=== PATIENT | female | born 1995 | race Caucasian/White ===

== ENCOUNTER 2021-07-21 22:42 | Emergency (ER) | payer MEDICAID, OTHER ==
[~2021-07-21] VITALS: Ht 157.5 cm; Wt 86.2 kg
[2021-07-21 23:42] LABS: BILIRUBIN,URINE NEGATIVE (NEGATIVE); CLARITY,URINE CLEAR; COLOR,URINE YELLOW; GLUCOSE, URINE (UA) NEGATIVE (NEGATIVE); KETONES,URINE TRACE (NEGATIVE); LEUKOCYTE ESTERASE ,URINE NEGATIVE (NEGATIVE); NITRITE,URINE NEGATIVE (NEGATIVE); PROTEIN,URINE NEGATIVE (NEGATIVE)
[2021-07-21 23:48] LABS: BACTERIA,URINE NEGATIVE /HPF; RBC,URINE RARE /HPF
[2021-07-21 23:50] LABS: AMPHETAMINE SCREEN, URINE NEGATIVE (NEGATIVE); BARBITURATE SCREEN URINE NEGATIVE (NEGATIVE); BENZODIAZEPINES SCREEN URINE NEGATIVE (NEGATIVE); CANNABINOID SCREEN, URINE NEGATIVE (NEGATIVE); COCAINE SCREEN URINE NEGATIVE (NEGATIVE); METHADONE STAT NEGATIVE (NEGATIVE); METHAMPHETAMINE SCREEN URINE S NEGATIVE (NEGATIVE); OPIATE SCREEN URINE NEGATIVE (NEGATIVE); OXYCODONE STAT NEGATIVE (NEGATIVE); PROPOXYPHENE STAT NEGATIVE (NEGATIVE); TRICYCLIC ANTIDEPRESSANTS SCRE NEGATIVE (NEGATIVE)
--- NOTE | 2021-07-22 00:20 | ED GU-Female ---
General Chief Complaint: OB < 20 WEEKS Stated Complaint: 10 WKS PREG - CRAMPING Nursing Triage Note: PT AMB TO FT 2 W REPORTS THAT SHE BELIEVES SHE'S ABOUT 10 WEEKS , HAS NOT BEEN ESTABLISHED W OB YET. C/O ABD PAIN AT THIS TIME. A&OX4. Source: patient History of Present Illness Date Seen by Provider: Jul 21, 2021 Time Seen by Provider: 23:20 Initial Comments PT ARRIVES VIA POV WITH A MALE. PT STATES SHE IS --NOT SURE HOW FAR ALONG SHE IS--THINKS POSSIBLY 10 WEEKS, STATES LMP WAS 05/09/21 HAS NOT HAD ANY OB CARE YET, FOR THIS PT IS AB 0 STATES SHE HAS HAD ABDOMINAL PAIN SINCE LAST NIGHT OR THIS MORNING--PAIN STARTS IN UPPER EPIGASTRIC/XYPHOID AREA AND GOES STRAIGHT DOWN TO GENITAL AREA IN A STRAIGHT LINE PAIN GOT WORSE AN HOUR AGO, WHILE STANDING AND TALKING TO HER MOTHER STATES PAIN IS WORSE WITH STANDING, NOTHING IMPROVES PAIN HAS NOT TAKEN ANYTHING FOR PAIN STATES SHE HAS NAUSEA AND VOMITING OFF AND ON--"NOT EVERY DAY, AND NOT VERY BAD" AND IS NOT NAUSEATED NOW NO DIARRHEA NO URINARY SYMPTOMS--NO PAIN, BURNING, URGENCY, FREQUENCY OR HEMATURIA NO VAGINAL BLEEDING OR DISCHARGE NO FEVER NO PRIOR GI PROBLEMS OR ANY ABDOMINAL SURGERIES PCP: NONE--STATES "I JUST MOVED BACK HERE FROM [place] IN 2019". STATES SHE LIVED THERE FOR 4 YEARS, WHERE HER 3 CHILDREN WERE BORN. STATES SHE HAS NOT SEEN A DR HERE IN [place]--"DON'T LIKE GOING TO DOCTORS" Allergies and Home Medications Allergies Coded Allergies: No Known Drug Allergies (Unverified , 07/21/21) Patient Home Medication List Home Medication List Reviewed: Yes Review of Systems Review of Systems Constitutional: no symptoms reported EENTM: no symptoms reported Respiratory: no symptoms reported Cardiovascular: no symptoms reported Gastrointestinal: see HPI Genitourinary: no symptoms reported : Yes LMP: May 09, 2021 Musculoskeletal: no symptoms reported; No back pain Skin: no symptoms reported Psychiatric/Neurological: No Symptoms Reported Endocrine: No Symptoms Reported Hematologic/Lymphatic: No Symptoms Reported Past Hqtpjpf-Lsrdak-Yjjaox Hx Patient Social History Tobacco Use?: No Use of E-Cig and/or Vaping dev: No Substance use?: No Alcohol Use?: No Immunizations Up To Date Influenza Vaccine Up-to-Date: No; Not Current First/Initial COVID19 Vaccinat: NONE Second COVID19 Vaccination Papi: NONE COVID19 Vaccine Building Superintendent: NONE Past Medical History Surgeries: No Respiratory: No Cardiac: No Neurological: No : Yes Last Menstrual Period: May 09, 2021 Hx : 4 Hx Para: 3 Hx Total # of Abortions (Sp): 0 Reproductive Disorders: No Genitourinary: No Gastrointestinal: No Musculoskeletal: No Endocrine: No HEENT: No Cancer: No Psychosocial: No Integumentary: No Blood Disorders: No Physical Exam Vital Signs Vital Signs - First Documented 07/21/21 22:50 Temp 36.4 Pulse 104 Resp 20 B/P (MAP) 138/82 (100) Pulse Ox 99 O2 Delivery Room Air Capillary Refill : Less Than 3 Seconds Height, Weight, BMI Height: '" Weight: lbs. oz. kg; 34.00 BMI Method: General Appearance: WD/WN, no apparent distress, obese, other (GIGGLING AND LAUGHING AND TALKING AND PLAYING ON PHONE. SITTING -STYLE, WALKS UPRIGHT AND MOVES VERY QUICKLY WITHOUT ANY DIFFICULTY WHATSOEVER. BEHAVIOR IS VERY IMMATURE. 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, no motor/sensory deficits, alert, normal mood/affect, oriented x 3 Skin: normal color, warm/dry; No rash; tattoos/piercings Progress/Results/Core Measures Suspected Sepsis SIRS Temperature: Pulse: 104 Respiratory Rate: 20 Blood Pressure 138 /82 Mean: 100 Results/Orders Lab Results Laboratory Tests Test 07/21/21 23:30 Range/Units Urine Color YELLOW Urine Clarity CLEAR Urine pH 6.0 5-9 Urine Specific [place] >=1.030 1.016-1.022 Urine Protein NEGATIVE NEGATIVE Urine Glucose (UA) NEGATIVE NEGATIVE Urine Ketones TRACE H NEGATIVE Urine Nitrite NEGATIVE NEGATIVE Urine Bilirubin NEGATIVE NEGATIVE Urine Urobilinogen 0.2 < = 1.0 MG/DL Urine Leukocyte Esterase NEGATIVE NEGATIVE Urine RBC (Auto) TRACE-I H NEGATIVE Urine RBC RARE /HPF Urine WBC NONE /HPF Urine Squamous Epithelial Cells 10-25 H /HPF Urine Crystals NONE /LPF Urine Bacteria NEGATIVE /HPF Urine Casts NONE /LPF Urine Mucus LARGE H /LPF Urine Culture Indicated NO Urine Opiates Screen NEGATIVE NEGATIVE Urine Oxycodone Screen NEGATIVE NEGATIVE Urine Methadone Screen NEGATIVE NEGATIVE Urine Propoxyphene Screen NEGATIVE NEGATIVE Urine Barbiturates Screen NEGATIVE NEGATIVE Ur Tricyclic Antidepressants Screen NEGATIVE NEGATIVE Urine Phencyclidine Screen NEGATIVE NEGATIVE Urine Amphetamines Screen NEGATIVE NEGATIVE Urine Methamphetamines Screen NEGATIVE NEGATIVE Urine Benzodiazepines Screen NEGATIVE NEGATIVE Urine Cocaine Screen NEGATIVE NEGATIVE Urine Cannabinoids Screen NEGATIVE NEGATIVE My Orders Orders - ANIBAL LAURENT DO Urine Bedside (07/21/21 23:29) Drug Screen Stat (Urine) (07/21/21 23:29) Ua Culture If Indicated (07/21/21 23:29) Vital Signs/I&O 07/21/21 07/22/21 22:50 00:26 Temp 36.4 Pulse 104 95 Resp 20 20 B/P (MAP) 138/82 (100) 112/73 Pulse Ox 99 99 O2 Delivery Room Air Room Air Capillary Refill : Less Than 3 Seconds Blood Pressure Mean: 100 Progress Note : Progress Note NO COMPLAINTS OF ANY KIND DURING ER STAY PT REFUSES TO GET OFF PHONE I AM ATTEMPTING TO EXAMINE HER AND GIVE TEST RESULTS. WANTS MALE TO LEAVE ROOM WHEN I AM GIVING HER TEST RESULTS AND WHEN I AM EXAMINING HER. PT STATES SHE CAN ONLY TAKE OVER THE COUNTER VITAMINS--THE OTHERS MAKE HER SICK UNABLE TO HEAR FHT'S AT THIS TIME Departure Impression Primary Impression: test positive Disposition: 01 HOME, SELF-CARE Condition: Stable Departure-Patient Inst. Decision time for Depature: 00:18 Referrals: LUDA FONTANEZ DENNIS G MD SHAW, ANGELA C DO [facility] [place] Patient Instructions: Symptoms Add. Discharge Instructions: TYLENOL NEEDED FOR PAIN OVER THE COUNTER VITAMINS EVERY DAY LOTS OF CLEAR LIQUIDS FOLLOW UP WITH OB DR OF CHOICE SOON POSSIBLE--CALL IN THE MORNING TO SCHEDULE APPOINTMENT All discharge instructions reviewed with patient and/or family. Voiced understanding. ANIBAL LAURENT DO Jul 22, 2021 00:20
[2021-07-22 00:26] VITALS: BP 112/73
== END 2021-07-22 00:26 | disposition home or self-care (01) ==
LOC: EDUNIT# 22:42 → ER 22:45
DX: Z32.01 Encounter for pregnancy test, result positive (principal); E66.9 Obesity, unspecified; Z68.34 Body mass index [BMI] 34.0-34.9, adult
CPT/HCPCS: 80306; 81000; 84703; 99282

== ENCOUNTER 2021-10-04 18:23 | Outpatient (CLI) | payer MEDICAID ==
[~2021-10-04] VITALS: Ht 157.4 cm; Wt 81.6 kg
[2021-10-04 18:44] VITALS: BP 117/77
[2021-10-04 18:45] VITALS: BP 117/77
[2021-10-04] MEDS ORDERED: PNV11TAB5 PO (18:49)
[2021-10-04 19:09] LABS: BILIRUBIN,URINE NEGATIVE (NEGATIVE); CLARITY,URINE CLEAR; COLOR,URINE YELLOW; GLUCOSE, URINE (UA) NEGATIVE (NEGATIVE); KETONES,URINE NEGATIVE (NEGATIVE); LEUKOCYTE ESTERASE ,URINE NEGATIVE (NEGATIVE); NITRITE,URINE NEGATIVE (NEGATIVE); PROTEIN,URINE NEGATIVE (NEGATIVE)
[2021-10-04 19:17] LABS: BACTERIA,URINE TRACE /HPF; SQUAMOUS EPITHELIAL CELL,UR 0-2 /HPF; WBC,URINE 0-2 /HPF
--- NOTE | 2021-10-05 08:45 | Physician Query-Final Dx ---
Clinic Account Progress/Dx Physician Query: Please give diagnosis Please include # weeks gestation Date of Service Oct 04, 2021 at 18:23 ANDREW,SepOct 05, 2021 08:45
== END 2021-10-04 19:32 ==
LOC: WSo 18:23 → LDRP 18:23 → WSo 19:32
PROVIDERS: ATTEND Family Medicine
DX: O12.02 Gestational edema, second trimester (principal); Z3A.22 22 weeks gestation of pregnancy
CPT/HCPCS: 81000; 99212

== ENCOUNTER 2022-01-19 18:37 | Outpatient (CLI) | payer MEDICAID ==
[~2022-01-19] VITALS: Ht 160 cm; Wt 195.8 kg
[~2022-01-19 18:37] MED LIST: PNV11TAB5 PO
[2022-01-19 19:30] VITALS: BP 132/78
[2022-01-19 21:00] LABS: BILIRUBIN,URINE NEGATIVE (NEGATIVE); CLARITY,URINE CLEAR; COLOR,URINE YELLOW; GLUCOSE, URINE (UA) NEGATIVE (NEGATIVE); KETONES,URINE NEGATIVE (NEGATIVE); LEUKOCYTE ESTERASE ,URINE TRACE (NEGATIVE); NITRITE,URINE NEGATIVE (NEGATIVE); PH,URINE 6.5 (5-9); PROTEIN,URINE NEGATIVE (NEGATIVE)
[2022-01-19 21:24] LABS: BACTERIA,URINE TRACE /HPF; RBC,URINE 0-2 /HPF; SQUAMOUS EPITHELIAL CELL,UR 0-2 /HPF; WBC,URINE 0-2 /HPF
[2022-01-19] MEDS ORDERED: ACETAMINOPHEN 500 MG TAB (TYLENOL) ONE (21:48)
[2022-01-19] MEDS ORDERED: NS IV 1000 ML 1,000 ML ONE (21:48)
[2022-01-19] MEDS ORDERED: ACETAMINOPHEN 500 MG TAB (TYLENOL) PO ONE (22:00)
[2022-01-19] MEDS ORDERED: NS IV 1000 ML 1,000 ML IV SCH (22:15)
[2022-01-19 23:30] VITALS: BP 109/60
--- NOTE | 2022-01-20 08:10 | Physician Query-Final Dx ---
Clinic Account Progress/Dx Physician Query: Please give diagnosis Please include # weeks gestation Date of Service January 19, 2022 at 18:37 ,SepJanuary 20, 2022 08:10
== END 2022-01-19 23:27 ==
LOC: WSo 18:37 → LDRP 18:42 → WSo 23:27
PROVIDERS: ATTEND Family Medicine
DX: O26.899 Other specified pregnancy related conditions, unspecified trimester (principal); R10.9 Unspecified abdominal pain; Z3A.00 Weeks of gestation of pregnancy not specified
CPT/HCPCS: 81000; 96360; 99214

== ENCOUNTER 2022-01-23 01:16 | Outpatient (CLI) | payer MEDICAID ==
[~2022-01-23] VITALS: Ht 157.5 cm; Wt 89.9 kg
[2022-01-23 01:37] VITALS: BP 124/67
[2022-01-23 01:39] VITALS: BP 124/67
[2022-01-23 01:52] LABS: BILIRUBIN,URINE NEGATIVE (NEGATIVE); CLARITY,URINE CLEAR; COLOR,URINE YELLOW; GLUCOSE, URINE (UA) NEGATIVE (NEGATIVE); KETONES,URINE 1+ (NEGATIVE); LEUKOCYTE ESTERASE ,URINE TRACE (NEGATIVE); NITRITE,URINE NEGATIVE (NEGATIVE); PH,URINE 6.5 (5-9); PROTEIN,URINE NEGATIVE (NEGATIVE)
[2022-01-23 02:05] LABS: BACTERIA,URINE NEGATIVE /HPF; RBC,URINE 0-2 /HPF
--- NOTE | 2022-01-25 08:19 | Physician Query-Final Dx ---
Clinic Account Progress/Dx Physician Query: Please give diagnosis Please include # weeks gestation Date of Service January 23, 2022 at 01:16 ,SepJanuary 25, 2022 08:19
== END 2022-01-23 02:55 | disposition home or self-care (01) ==
LOC: WSo 01:16 → LDRP 01:17 → WSo 02:55
PROVIDERS: ATTEND Family Medicine
DX: Z34.90 Encounter for supervision of normal pregnancy, unspecified, unspecified trimester (principal); Z3A.00 Weeks of gestation of pregnancy not specified
CPT/HCPCS: 81000

== ENCOUNTER 2022-01-29 06:10 | Inpatient (IN) | payer MEDICAID ==
[2022-01-29] VITALS (39 sets, daily range): BP systolic 94–126; BP diastolic 53–83
[~2022-01-29] VITALS: Ht 157.5 cm; Wt 90.5 kg
[2022-01-29] MEDS ORDERED: D5 LR IV SOLUTION 1,000 ML IV ONE (06:48)
--- NOTE | 2022-01-29 06:56 | History & Physical-OB ---
OB - Chief Complaint & HPI Date/Time Date of Admission: Date of Admission: January 29, 2022 at 06:10 Date seen by a Provider: January 29, 2022 Time Seen by a Provider: 06:40 Chief Complaint/History OB-Reason for Admission/Chief: Induction of Labor Hx : 4 Hx Para: 3 Expected Date of Delivery: Feb 05, 2022 Gestational Age in Weeks: 39 Gestational Age in Days: 0 Admission Nurse Assessment Rev: Yes History of Labs GBS negative Allergies and Home Medications Allergies Coded Allergies: chlorpheniramine (Verified Allergy, Unknown, Hives, 01/29/22) dextromethorphan (Verified Allergy, Unknown, Hives, 01/29/22) pseudoephedrine (Verified Allergy, Unknown, Hives, 01/29/22) Patient Home Medication List Home Medication List Reviewed: Yes Cfc783/FA/Omega3/Dha/Fish Oil ( Gummies) 1 Each Tab.chew, 2 EACH PO DAILY, (Reported) Entered as Reported by: CHIQUI GUPTA on 10/04/21 6079 OB - History Hx of Present Care: Yes Ultrasounds: Normal mid trimester US Obstetrical Complications: None Medical Complications: None Patient Past Medical History no chronic medical problems Social History/Family History 2nd Hand Smoke Exposure: No Immunizations First/Initial COVID19 Vaccine: NONE Second COVID19 Vaccination: NONE OB - Admission Exam Physical Exam HEENT: Moist Membranes Heart: Rhythm Normal Lungs: Clear Abdomen: Gravid Cervical Dilatation: 2cm Effacement: 75% Station: -3 Membranes: Ruptured Amniotic Fluid: Clear Heart Rate: 140's Accelerations: Accelerations Present Short Term Variability: Present Air Drier Variability: Average (6-25) Contractions on Admission: >10 Minutes Apart Intensity: Mild Bolton Scoring Tool (Modified) Dilation (cm): 1-2cm (1) Effacement (%): 51-79% (2) Descent/Station: -3 (0) Cervix Consistency: Medium(1) Cervix Position: Middle/Mid-Position (1) Add 1 point for: Each previous vaginal delivery (1) Bolton Score: 8 OB - Assessment/Plan/Diagnosis Assessment Assessment: induction of labor Admission Dx 1. IUP at 39 weeks. Admission Status: Inpatient Order (span 2 midnights) Reason for Inpatient Admission: L&D Plan Plan: Induction Induction Method: AROM Other Plan -desires epidural -pitocin as necessary SARAH BENJAMIN MD January 29, 2022 06:56
[2022-01-29] MEDS ORDERED: OXYTOCIN PRE-MIX DRIP 500 ML IV SCH ×2 (07:00→13:45)
[2022-01-29] MEDS ORDERED: MINERAL OIL 30 ML TOP PRN (07:00)
[2022-01-29] MEDS ORDERED: D5 LR IV SOLUTION 1,000 ML IV SCH (07:00)
[2022-01-29 07:11] LABS: BASOPHILS % (AUTO) 1 % (0-10); EOSINOPHILS # (AUTO) 0.2 10^3/uL (0.0-0.3); EOSINOPHILS % (AUTO) 3 % (0-10); HEMATOCRIT 31 % (35-52); HEMOGLOBIN 10.1 g/dL (11.5-16.0); LYMPHOCYTES # (AUTO) 1.9 10^3/uL (1.0-4.0); LYMPHOCYTES % (AUTO) 30 % (12-44); MEAN CORPUSCULAR HEMOGLOBIN 27 pg (25-34); MEAN CORPUSCULAR HGB CONC 32 g/dL (32-36); MEAN CORPUSCULAR VOLUME 82 fL (80-99); MEAN PLATELET VOLUME 12.9 fL (9.0-12.2); MONOCYTES # (AUTO) 0.4 10^3/uL (0.0-1.0); MONOCYTES % (AUTO) 6 % (0-12); NEUTROPHILS # (AUTO) 3.9 10^3/uL (1.8-7.8); NEUTROPHILS % (AUTO) 60 % (42-75); PLATELET COUNT 146 10^3/uL (130-400); WHITE BLOOD COUNT 6.5 10^3/uL (4.3-11.0)
[2022-01-29] MEDS ORDERED: fentaNYL 2 mcg/ml BUPIVA 0.125 100 ML ONE (07:54)
[2022-01-29] MEDS ORDERED: LACTATED RINGERS 1,000 ML IV SCH (08:00)
[2022-01-29] MEDS ORDERED: BUPIVACAINE 0.25% 10 ML (SENSORCAINE) VIAL ONE (09:26)
[2022-01-29] MEDS ORDERED: fentaNYL INJ 100 MCG/2 ML AMP ONE (09:27)
[2022-01-29] MEDS ORDERED: fentaNYL 2 mcg/ml BUPIVA 0.125 100 ML IV SCH (10:00)
[2022-01-29] MEDS ORDERED: NALOXONE 0.4 MG/ML 1 ML (NARCAN) VIAL IV PRN ×2 (10:00→13:45)
[2022-01-29] MEDS ORDERED: CATHETER FLUSH 10 ML SYR IV PRN (10:00)
[2022-01-29] MEDS ORDERED: ONDANSETRON 4 MG/2 ML (SDV) Z0FRAN IVP ONE (13:00)
[2022-01-29] MEDS ORDERED: ONDANSETRON 4 MG/2 ML (SDV) Z0FRAN ONE (13:01)
[2022-01-29] MEDS ORDERED: BENZOCAINE/MENTHOL (DERMOPLAST) 56 ML CAN TP PRN (13:45)
[2022-01-29] MEDS ORDERED: TETANUS,DIPTH,PERTUSS P/F (BOOSTRIX) 0.5 ML VIAL IM ONE (13:45)
[2022-01-29] MEDS ORDERED: WITCH HAZEL(TUCKS) 40 EA JAR TOP PRN (13:45)
[2022-01-29] MEDS ORDERED: MEASLES,MUMPS,RUBELLA 1 EA INJ SQ ONE (13:45)
--- NOTE | 2022-01-29 13:45 | OB Labor & Delivery Record ---
L&D History Date of Service Date of Service: January 29, 2022 History Expected Date of Delivery: Feb 05, 2022 Gestational Age in Weeks: 39 Hx : 4 Hx Para: 4 Complications Events: Routine care Operative Indications (Cesarea: N/A-Vaginal Delivery Intrapartal Events: None L&D Stage1 Stage One Onset of Labor - Date: January 29, 2022 Onset of Labor - Time: 06:30 Monitors and Tracing Monitor Mode: Internal Heart Rate: 130 Monitor Accelerations: Uniform Monitor Decelerations: None Station: -2 Business Development Intern Variability: Average (6-10) Short Term Variability: Present Presentation: Vertex Vital Signs VS - Last 72 Hours, by Label 01/29/22 01/29/22 01/29/22 01/29/22 06:59 08:00 08:15 08:30 Temp 36.8 36.6 Pulse 70 71 82 76 Resp 18 18 18 18 B/P (MAP) 116/71 (86) 115/71 (86) 114/77 (89) 111/64 (80) Pulse Ox 99 98 O2 Delivery Room Air Room Air Room Air 01/29/22 01/29/22 08:45 09:00 Temp 36.5 Pulse 80 80 Resp 18 18 B/P (MAP) 110/65 (80) 118/76 (90) O2 Delivery Room Air Room Air Rupture of Membranes Spontaneous Ruture of Membrane: No Amniotic Membrane Rupture Time: 0630 Amniotic Membrane Fluid Desc.: Clear Vaginal Bleeding Description: None L&D Stage2 Stage Two Stage II Date: January 29, 2022 Stage II Time: 13:24 Monitors and Tracing Monitor Mode: Internal Heart Rate: 130 Monitor Accelerations: Uniform Monitor Decelerations: None Group Home Variability: Average (6-10) Short Term Variability: Present Position: Left Occiput Anterior Presentation: Vertex Signs of Distress by FHT Signs of Distress No Cord Descript/Complications Cord Vessel Description: 3 Vessels Delivery Type Infant Delivery Method: Spontaneous Vaginal Anterior Shoulder: Left Episiotomy/Perineal Laceration Laceraction(s)/Extensions: No Condition of Delivery 1 minute Comment: 8 5 minute Comment: 9 Condition of Condition of : Living Exam: No Observed Abnormalities Resuscitation Resuscitation: N/A - Spontaneous Resp L&D Stage3 Stage Three Stage III Date: January 29, 2022 Stage III Time: 13:28 Pictocin Pitocin Administration mu/min: 4 Pitocin ml/hr: 4 Pitocin Administration Comment: 0338 PITOCIN INCREASED Placenta Delivery Placenta Delivery: Spontaneous Delivery Summary Summary Estimated blood loss (mL): 150 Condition of Delivery Examined: Cervix Examined Post Hemorrhage: No Intervention Required None SARAH BENJAMIN MD January 29, 2022 13:45
[2022-01-29] MEDS ORDERED: CATHETER FLUSH 10 ML SYR IV SCH (14:00)
[2022-01-29] MEDS ORDERED: RT-ALBUINH INH (16:31)
[2022-01-29] MEDS: ACETAMINOPHEN 500 MG TAB (TYLENOL) PO SCH ×2 (17:45→23:04)
[2022-01-29] MEDS: IBUPROFEN 600 MG (MOTRIN) TAB PO SCH ×2 (17:45→23:03)
[2022-01-29] MEDS: CATHETER FLUSH 10 ML SYR IV SCH (22:00)
[2022-01-29] MEDS: DOCUSATE SODIUM 100 MG (COLACE) CAP PO SCH (23:04)
[2022-01-30 03:23] VITALS: BP 113/66
[2022-01-30 06:04] LABS: BASOPHILS % (AUTO) 0 % (0-10); EOSINOPHILS # (AUTO) 0.2 10^3/uL (0.0-0.3); EOSINOPHILS % (AUTO) 2 % (0-10); HEMATOCRIT 30 % (35-52); HEMOGLOBIN 9.3 g/dL (11.5-16.0); LYMPHOCYTES % (AUTO) 29 % (12-44); MEAN CORPUSCULAR HEMOGLOBIN 26 pg (25-34); MEAN CORPUSCULAR HGB CONC 31 g/dL (32-36); MEAN CORPUSCULAR VOLUME 82 fL (80-99); MEAN PLATELET VOLUME 12.4 fL (9.0-12.2); MONOCYTES # (AUTO) 0.5 10^3/uL (0.0-1.0); MONOCYTES % (AUTO) 7 % (0-12); NEUTROPHILS # (AUTO) 4.3 10^3/uL (1.8-7.8); NEUTROPHILS % (AUTO) 61 % (42-75); PLATELET COUNT 122 10^3/uL (130-400); WHITE BLOOD COUNT 7.1 10^3/uL (4.3-11.0)
[2022-01-30] MEDS: IBUPROFEN 600 MG (MOTRIN) TAB PO SCH ×2 (06:24→12:32)
[2022-01-30] MEDS: CATHETER FLUSH 10 ML SYR IV SCH (06:25)
[2022-01-30] MEDS: ACETAMINOPHEN 500 MG TAB (TYLENOL) PO SCH ×2 (06:25→12:32)
[2022-01-30 08:41] VITALS: BP 110/66
[2022-01-30] MEDS ORDERED: FERROUS SULF 325 MG (IRON) TAB PO SCH (10:00)
[2022-01-30] MEDS ORDERED: FERR325T18 PO (10:02)
--- NOTE | 2022-01-30 10:04 | Short Stay Summary ---
Discharge Summary Hospital Course Final Diagnosis: s/p at 39wk GA Hospital Course Date of Admission: January 29, 2022 at 06:10 Admission Diagnosis : 1. at 39wk, IOL Family Physician/Provider: Sarah Benjamin MD Date of Discharge: 01/30/22 Discharge Diagnosis: 1. at 39wk, IOL s/p on 01/29/22 2. anemia of , iron deficiency Hospital Course: Routine course. Labs and Pending Lab Test: Laboratory Tests 01/30/22 05:28: White Blood Count 7.1, Red Blood Count 3.62L, Hemoglobin 9.3L, Hematocrit 30L, Mean Corpuscular Volume 82, Mean Corpuscular Hemoglobin 26, Mean Corpuscular Hemoglobin Concent 31L, Red Cell Distribution Width 14.1, Platelet Count 122L, Mean Platelet Volume 12.4H, Immature Granulocyte % (Auto) 1, Neutrophils (%) (Auto) 61, Lymphocytes (%) (Auto) 29, Monocytes (%) (Auto) 7, Eosinophils (%) (Auto) 2, Basophils (%) (Auto) 0, Neutrophils # (Auto) 4.3, Lymphocytes # (Auto) 2.0, Monocytes # (Auto) 0.5, Eosinophils # (Auto) 0.2, Basophils # (Auto) 0.0, Immature Granulocyte # (Auto) 0.0 Home Meds Active Reported Ventolin Hfa (Albuterol Sulfate) 1 Puff Puff 2 Puff INH Q6H 1 PUFF = 90 MCG Gummies (Ohu607/FA/Omega3/Dha/Fish Oil) 1 Each Tab.chew 2 Each PO DAILY Assessment/Pt Instructions Follow-up with Dr. Benjamin in 6 weeks. Discharge Instructions Discharge Diet: No Restrictions Activity as Tolerated: Yes Discharge Physical Examination General Appearance: Alert, Oriented X3, Cooperative Psych/Mental Status: Mood NL Allergies: Coded Allergies: chlorpheniramine (Verified Allergy, Unknown, Hives, 01/29/22) dextromethorphan (Verified Allergy, Unknown, Hives, 01/29/22) pseudoephedrine (Verified Allergy, Unknown, Hives, 01/29/22) Copy Copies To 1: SARAH BENJAMIN MD Discharge Summary Date of Admission January 29, 2022 at 06:10 Date of Discharge MARGARITA BURR DO January 30, 2022 10:04
[2022-01-30] MEDS: DOCUSATE SODIUM 100 MG (COLACE) CAP PO SCH (10:30)
[2022-01-30 12:32] VITALS: BP 117/80
--- NOTE | 2022-01-30 15:05 | Anesthesia-Regional Post-Op ---
Regional Patient Condition Mental Status: Alert, Oriented x3 Circulation: Same as Pre-Op Headache: Absent Sensation: Full Recovery Motor Block: Absent Post Op Complications Complications None Follow Up Care/Instructions Patient Instructions None needed. Anesthesia/Patient Condition Patient is doing well, no complaints, stable vital signs, no apparent adverse anesthesia problems. No complications reported per nursing. CHIARA KOO CRNA January 30, 2022 15:05
[2022-01-30 15:43] VITALS: BP 117/80
== END 2022-01-30 16:10 | disposition home or self-care (01) | DRG 807 ==
LOC: LDRP 06:10
PROVIDERS: ADMIT Family Medicine; ATTEND Family Medicine
PROC: 10E0XZZ Delivery of Products of Conception, External Approach (ICD-10-PCS; principal; 2022-01-29)
PROC: 10907ZC Drainage of Amniotic Fluid, Therapeutic from Products of Conception, Via Natural or Artificial Opening (ICD-10-PCS; 2022-01-29)
DX: O99.02 Anemia complicating childbirth (principal); Z37.0 Single live birth; Z3A.39 39 weeks gestation of pregnancy; D50.9 Iron deficiency anemia, unspecified
CPT/HCPCS: 36415; 85025; 86850; 86900; 86901

== ENCOUNTER 2022-02-05 21:58 | Emergency (ER) | payer MEDICAID ==
[~2022-02-05 21:58] MED LIST changes: +FERR325T18 PO; +RT-ALBUINH INH
[2022-02-05 23:04] LABS: BILIRUBIN,URINE NEGATIVE (NEGATIVE); CLARITY,URINE CLEAR; COLOR,URINE YELLOW; GLUCOSE, URINE (UA) NEGATIVE (NEGATIVE); KETONES,URINE TRACE (NEGATIVE); LEUKOCYTE ESTERASE ,URINE TRACE (NEGATIVE); NITRITE,URINE NEGATIVE (NEGATIVE); PROTEIN,URINE NEGATIVE (NEGATIVE)
[2022-02-05 23:37] LABS: BACTERIA,URINE TRACE /HPF; SQUAMOUS EPITHELIAL CELL,UR 0-2 /HPF; WBC,URINE 0-2 /HPF
[2022-02-06] MEDS ORDERED: RX-CYCLOBENZAPRINE 10 MG (FLEXERIL) TAB PPK#3 PO STA (00:30)
[2022-02-06] MEDS ORDERED: RX-NAPROXEN (NAPROSYN) 250 MG TAB PPK#4 PO STA (00:30)
[2022-02-06] MEDS ORDERED: CYCL10TA25 PO (00:30)
[2022-02-06] MEDS ORDERED: NAPR500T8 PO (00:30)
--- NOTE | 2022-02-06 00:31 | ED Back Pain ---
General Chief Complaint: Back Problems Stated Complaint: FALL/BACK PAIN Nursing Triage Note: TO ED VIA POV AND AMBULATORY TO FT3 WITH C/O BACK PAIN AFTER FALLING DOWN STAIRS. TOOK IBUPROFEN WITHOUT RELIEF. Source of Information: Patient History of Present Illness Date Seen by Provider: Feb 05, 2022 Allergies and Home Medications Allergies Coded Allergies: chlorpheniramine (Verified Allergy, Unknown, Hives, 01/29/22) dextromethorphan (Verified Allergy, Unknown, Hives, 01/29/22) pseudoephedrine (Verified Allergy, Unknown, Hives, 01/29/22) Patient Home Medication List Albuterol Sulfate (Ventolin Hfa) 1 Puff Puff, 2 PUFF INH Q6H, (Reported) Entered as Reported by: LIYAH HINTON on 01/29/22 1631 Ferrous Sulfate (Ferrous Sulfate) 325 Mg (65 Mg Iron) Tablet, 325 MG PO DAILY Prescribed by: MARGARITA BURR on 01/30/22 1002 Nwu539/FA/Omega3/Dha/Fish Oil ( Gummies) 1 Each Tab.chew, 2 EACH PO DAILY, (Reported) Entered as Reported by: CHIQUI GUPTA on 10/04/21 1849 Past Njlqqer-Uzubzb-Jwxgqm Hx Immunizations Up To Date First/Initial COVID19 Vaccinat: NONE Second COVID19 Vaccination Papi: NONE Third COVID19 Vaccination Date: NONE Past Medical History Surgeries: No Respiratory: No Cardiac: No Neurological: No Reproductive Disorders: No Genitourinary: No Gastrointestinal: No Musculoskeletal: No Endocrine: No HEENT: No Cancer: No Psychosocial: No Integumentary: No Blood Disorders: No Physical Exam Vital Signs Vital Signs - First Documented 02/05/22 22:25 Temp 36.6 Pulse 60 Resp 16 B/P (MAP) 130/84 (99) Pulse Ox 97 O2 Delivery Room Air Capillary Refill : Less Than 3 Seconds Height, Weight, BMI Height: '" Weight: lbs. oz. kg; 36.48 BMI Method: Progress/Results/Core Measures Results/Orders Lab Results Laboratory Tests Test 02/05/22 22:55 Range/Units Urine Color YELLOW Urine Clarity CLEAR Urine pH 6.0 5-9 Urine Specific [place] 1.020 1.016-1.022 Urine Protein NEGATIVE NEGATIVE Urine Glucose (UA) NEGATIVE NEGATIVE Urine Ketones TRACE H NEGATIVE Urine Nitrite NEGATIVE NEGATIVE Urine Bilirubin NEGATIVE NEGATIVE Urine Urobilinogen 0.2 < = 1.0 MG/DL Urine Leukocyte Esterase TRACE H NEGATIVE Urine RBC (Auto) NEGATIVE NEGATIVE Urine RBC NONE /HPF Urine WBC 0-2 /HPF Urine Squamous Epithelial Cells 0-2 /HPF Urine Crystals NONE /LPF Urine Bacteria TRACE /HPF Urine Casts NONE /LPF Urine Mucus NEGATIVE /LPF Urine Culture Indicated NO My Orders Orders - ANIBAL LAURENT DO Ua Culture If Indicated (02/05/22 22:47) Ct Thoracic/Lumbar Spine Wo (02/05/22 22:57) Vital Signs/I&O 02/05/22 22:25 Temp 36.6 Pulse 60 Resp 16 B/P (MAP) 130/84 (99) Pulse Ox 97 O2 Delivery Room Air Blood Pressure Mean: 99 Departure Impression Primary Impression: Fall down stairs Additional Impression: BACK STRAIN AND CONTUSION Disposition: 01 HOME, SELF-CARE Condition: Stable Departure-Patient Inst. Decision time for Depature: 00:28 Referrals: SARAH BENJAMIN MD (PCP/Family) Primary Care Physician Patient Instructions: Back Muscle Strain (DC), Contusion (DC), Preventing Falls ED Add. Discharge Instructions: ALTERNATE ICE AND HEAT TO SORE AREAS AT 20 MINUTE INTERVALS NO LIFTING OVER 5 LBS, NO TWISTING OR BENDING AT WAIST FOLLOW UP WITH YOUR DR IN 4-5 DAYS IF NO BETTER All discharge instructions reviewed with patient and/or family. Voiced understanding. Scripts Cyclobenzaprine HCl (Cyclobenzaprine HCl) 10 Mg Tablet 10 MG PO Q8H PRN for SPASMS, #15 TAB 0 Refills Prov: ANIBAL LAURENT DO 02/06/22 Naproxen (Naproxen) 500 Mg Tablet.dr 500 MG PO BID, #20 TAB Prov: ANIBAL LAURENT DO 02/06/22 ANIBAL LAURENT DO Feb 06, 2022 00:31
[2022-02-06 00:51] VITALS: BP 128/80
--- NOTE | 2022-02-06 06:03 | Diagnostic Imaging Report ---
PROCEDURE: CT thoracic and lumbar spine without contrast. TECHNIQUE: Multiple contiguous axial images were obtained through the thoracic and lumbar spine without the use of intravenous contrast. Sagittal and coronal reformations were then performed. All CT scans use one or more of the following dose optimizing techniques: automated exposure control, MA and/or KvP adjustment based on a patient size and exam type, or iterative reconstruction. INDICATION: Trauma. Back pain. Fall down stairs. COMPARISON: None. FINDINGS: Normal alignment. Vertebral body heights preserved. No fractures. No substantial spondylotic change or evidence of neural impingement on noncontrast CT. Visualized pelvis is intact. Paravertebral soft tissues demonstrate no acute findings. IMPRESSION: No acute CT findings in the thoracic or lumbar spine. Dictated by: Dictated on workstation # [id number]
== END 2022-02-06 00:51 | disposition home or self-care (01) ==
LOC: EDUNIT# 21:58 → ER 21:59
DX: S39.012A Strain of muscle, fascia and tendon of lower back, initial encounter (principal); Z28.310 Unvaccinated for COVID-19; W10.9XXA Fall (on) (from) unspecified stairs and steps, initial encounter
CPT/HCPCS: 72128; 72131; 81000; 84703

== ENCOUNTER 2022-10-19 23:33 | Emergency (ER) | payer SELFPAY ==
[~2022-10-19] VITALS: Ht 160 cm; Wt 81.6 kg
[~2022-10-19 23:33] MED LIST changes: +CYCL10TA25 PO; +NAPR500T8 PO
[2022-10-20] MEDS ORDERED: LACTATED RINGERS 1,000 ML IV ONE (00:47)
[2022-10-20] MEDS ORDERED: PROMETHAZINE INJ 25 MG/ML (PHENERGAN) AMP ONE (00:47)
[2022-10-20] MEDS ORDERED: PROM25TA14 PO (03:13)
--- NOTE | 2022-10-20 03:13 | ED GU-Female ---
General Chief Complaint: OB < 20 WEEKS Stated Complaint: VOMITING,4 MONTHS PREG Nursing Triage Note: PT AMBULATES TO ROOM WITHOUT ASSISTANCE OF ER STAFF; PT A&OX4; PT ADVISES THAT SHE IS CURRENTLY AND SINCE YESTERDAY SHE HAS HAD PERSISTENT VOMITING; PT DENIES OTHER SYMPTOMS; PT IS UNSURE OF GESTATIONAL AGE AND HAS NOT ESTABLISHED WITH OB YET; PT HAS APPT WITH OB TOMORROW. Source: patient Exam Limitations: no limitations History of Present Illness Date Seen by Provider: Oct 20, 2022 Time Seen by Provider: 00:40 Initial Comments This 26-year-old young lady is a 5 para 4 at unknown gestational age who presents to the emergency room with generalized abdominal discomfort in termittently for the past 2 to 3 weeks. She has been having nausea and vomiting. She is uncertain of her actual LMP. By palpation of the pelvis she appears to have a fundal height consistent with 16 to 20 weeks. She denies any fever or urinary symptoms. She had a positive urine test "a couple months ago. She denies any vaginal discharge or pain. She is to establish obstetrical care for this at [facility] tomorrow. Allergies and Home Medications Allergies Coded Allergies: chlorpheniramine (Verified Allergy, Unknown, Hives, 01/29/22) dextromethorphan (Verified Allergy, Unknown, Hives, 01/29/22) pseudoephedrine (Verified Allergy, Unknown, Hives, 01/29/22) Patient Home Medication List Home Medication List Reviewed: Yes Albuterol Sulfate (Ventolin Hfa) 1 Puff Puff, 2 PUFF INH Q6H, (Reported) Entered as Reported by: LIYAH HINTON on 01/29/22 1631 Cyclobenzaprine HCl (Cyclobenzaprine HCl) 10 Mg Tablet, 10 MG PO Q8H PRN for SPASMS Prescribed by: ANIBAL LAURENT on 02/06/22 0030 Ferrous Sulfate (Ferrous Sulfate) 325 Mg (65 Mg Iron) Tablet, 325 MG PO DAILY Prescribed by: MARGARITA BURR on 01/30/22 1002 Naproxen (Naproxen) 500 Mg Tablet.dr, 500 MG PO BID Prescribed by: ANIBAL LAURENT on 02/06/22 0030 Xdk064/FA/Omega3/Dha/Fish Oil ( Gummies) 1 Each Tab.chew, 2 EACH PO DAILY, (Reported) Entered as Reported by: CHIQUI Casillas ALONSO on 10/04/21 1849 Promethazine HCl (Promethazine Tablet) 25 Mg Tablet, 25 MG PO Q6H PRN for NAUSEA/VOMITING Prescribed by: EVIE BAE on 10/20/22 0313 Review of Systems Review of Systems Constitutional: no symptoms reported EENTM: no symptoms reported Respiratory: no symptoms reported Cardiovascular: no symptoms reported Gastrointestinal: see HPI Genitourinary: see HPI : Yes Musculoskeletal: no symptoms reported Skin: no symptoms reported Psychiatric/Neurological: No Symptoms Reported Endocrine: No Symptoms Reported Past Kuqwpza-Ckyszo-Jtxeey Hx Patient Social History Tobacco Use?: No Use of E-Cig and/or Vaping dev: No Substance use?: No Alcohol Use?: No Pt feels they are or have been: No Immunizations Up To Date Influenza Vaccine Up-to-Date: No; Not Current First/Initial COVID19 Vaccinat: N/A Second COVID19 Vaccination Papi: NONE Third COVID19 Vaccination Date: NONE Past Medical History Surgeries: No Respiratory: Yes Asthma Cardiac: No Neurological: No : Yes Last Menstrual Period: Aug 24, 2022 (uncertain) Reproductive Disorders: Yes (history of pre-eclampsia) Genitourinary: No Gastrointestinal: No Musculoskeletal: Yes Chronic Back Pain Endocrine: No HEENT: No Cancer: No Psychosocial: No Integumentary: No Blood Disorders: No Physical Exam Vital Signs Vital Signs - First Documented 10/19/22 23:40 Temp 37.0 Pulse 107 Resp 16 B/P (MAP) 141/89 (106) Pulse Ox 97 O2 Delivery Room Air Capillary Refill : Less Than 3 Seconds Height, Weight, BMI Height: '" Weight: lbs. oz. kg; 31.00 BMI Method: General Appearance: WD/WN, no apparent distress HEENT: normal ENT inspection Neck: normal inspection Cardiovascular: regular rate, rhythm, no edema, no murmur Respiratory: lungs clear, normal breath sounds, no respiratory distress Gastrointestinal: normal bowel sounds, soft, distended, tenderness (Mild, g eneralized), other (fundus palpated and estimated to be around 16-18 wga. FHT 160s by Doppler) Extremities: normal inspection, no pedal edema Neurologic/Psychiatric: no motor/sensory deficits, alert, normal mood/affect, oriented x 3 Skin: normal color, warm/dry Progress/Results/Core Measures Suspected Sepsis SIRS Temperature: Pulse: 107 Respiratory Rate: 16 Laboratory Tests 10/20/22 00:55: White Blood Count 6.1 Blood Pressure 141 /89 Mean: 106 Laboratory Tests 10/20/22 00:55: Creatinine 0.60, Platelet Count 154, Total Bilirubin 0.5 Results/Orders Lab Results Laboratory Tests Test 10/20/22 00:55 Range/Units White Blood Count 6.1 4.3-11.0 10^3/uL Red Blood Count 4.33 3.80-5.11 10^6/uL Hemoglobin 12.3 11.5-16.0 g/dL Hematocrit 37 35-52 % Mean Corpuscular Volume 86 80-99 fL Mean Corpuscular Hemoglobin 28 25-34 pg Mean Corpuscular Hemoglobin Concent 33 32-36 g/dL Red Cell Distribution Width 13.6 10.0-14.5 % Platelet Count 154 130-400 10^3/uL Mean Platelet Volume 11.5 9.0-12.2 fL Immature Granulocyte % (Auto) 1 % Neutrophils (%) (Auto) 80 H 42-75 % Lymphocytes (%) (Auto) 14 12-44 % Monocytes (%) (Auto) 4 0-12 % Eosinophils (%) (Auto) 2 0-10 % Basophils (%) (Auto) 0 0-10 % Neutrophils # (Auto) 4.9 1.8-7.8 10^3/uL Lymphocytes # (Auto) 0.8 L 1.0-4.0 10^3/uL Monocytes # (Auto) 0.2 0.0-1.0 10^3/uL Eosinophils # (Auto) 0.1 0.0-0.3 10^3/uL Basophils # (Auto) 0.0 0.0-0.1 10^3/uL Immature Granulocyte # (Auto) 0.1 0.0-0.1 10^3/uL Percent Immature Platelet Fraction 7.4 0.0-7.6 % Urine Color YELLOW Urine Clarity CLEAR Urine pH 6.5 5-9 Urine Specific [place] 1.025 H 1.016-1.022 Urine Protein NEGATIVE NEGATIVE Urine Glucose (UA) NEGATIVE NEGATIVE Urine Ketones 2+ H NEGATIVE Urine Nitrite NEGATIVE NEGATIVE Urine Bilirubin NEGATIVE NEGATIVE Urine Urobilinogen 1.0 < = 1.0 MG/DL Urine Leukocyte Esterase NEGATIVE NEGATIVE Urine RBC (Auto) NEGATIVE NEGATIVE Urine RBC NONE /HPF Urine WBC RARE /HPF Urine Squamous Epithelial Cells 2-5 /HPF Urine Crystals NONE /LPF Urine Bacteria NEGATIVE /HPF Urine Casts NONE /LPF Urine Mucus SMALL H /LPF Urine Culture Indicated NO Sodium Level 137 135-145 MMOL/L Potassium Level 3.9 3.6-5.0 MMOL/L Chloride Level 106 98-107 MMOL/L Carbon Dioxide Level 19 L 21-32 MMOL/L Anion Gap 12 5-14 MMOL/L Blood Urea Nitrogen 8 7-18 MG/DL Creatinine 0.60 0.60-1.30 MG/DL Estimat Glomerular Filtration Rate 127 BUN/Creatinine Ratio 13 Glucose Level 73 70-105 MG/DL Calcium Level 8.3 L 8.5-10.1 MG/DL Corrected Calcium 8.8 8.5-10.1 MG/DL Total Bilirubin 0.5 0.1-1.0 MG/DL Aspartate Amino Transf (AST/SGOT) 13 5-34 U/L Alanine Aminotransferase (ALT/SGPT) 13 0-55 U/L Alkaline Phosphatase 96 40-136 U/L Total Protein 7.3 6.4-8.2 GM/DL Albumin 3.4 3.2-4.5 GM/DL My Orders Orders - EVIE NORRIS MD Promethazine Injection (Phenergan Injec (10/20/22 00:47) Lactated Ringers (Lr 1000 Ml Iv Solution (10/20/22 00:47) Cbc With Automated Diff (10/20/22 00:55) Comprehensive Metabolic Panel (10/20/22 00:55) Urinalysis (10/20/22 00:55) Vital Signs/I&O 10/19/22 10/20/22 23:40 03:25 Temp 37.0 36.8 Pulse 107 83 Resp 16 16 B/P (MAP) 141/89 (106) 123/73 Pulse Ox 97 98 O2 Delivery Room Air Room Air Capillary Refill : Less Than 3 Seconds Blood Pressure Mean: 106 Progress Note : Progress Note Labs were evaluated including CMP and CBC and urinalysis. They were unremarkable. Patient was treated with a liter of LR and Phenergan. She was advised to keep her appointment today to establish care with obstetrics. See discharge instructions for further discussion. Departure Impression Primary Impression: Nausea & vomiting Qualified Codes: R11.2 - Nausea with vomiting, unspecified Additional Impressions: Qualified Codes: Z34.90 - Encounter for supervision of normal , unspecified, unspecified trimester Abdominal discomfort Disposition: 01 HOME, SELF-CARE Condition: Improved Departure-Patient Inst. Decision time for Depature: 03:09 Referrals: SARAH BENJAMIN MD (PCP/Family) Primary Care Physician Patient Instructions: Abdominal Pain, Adult ED Add. Discharge Instructions: Drink plenty of clear liquids to stay well-hydrated. Eat small quantities of healthy foods frequently throughout the day to help fight nausea. You may take Phenergan (promethazine) as prescribed for nausea and vomiting. Please be advised this medication may cause drowsiness. Do not drive, operate machinery, or make important decisions while on this medication. Keep your appointment to establish obstetrical care. For discomfort you may take Tylenol (acetaminophen) up to 1000 mg every 6 hours as needed. Return to the ER if you have worsening symptoms despite following these instructions. All discharge instructions reviewed with patient and/or family. Voiced understanding. Scripts Promethazine HCl (Promethazine Tablet) 25 Mg Tablet 25 MG PO Q6H PRN for NAUSEA/VOMITING, #10 TAB Prov: EIVE NORRIS MD 10/20/22 Copy Copies To 1: SARAH BENJAMIN MD Copies To 2: [facility]/EVIE MCKEON MD Oct 20, 2022 03:13
[2022-10-20 03:25] VITALS: BP 123/73
[2022-10-20 03:33] LABS: BASOPHILS % (AUTO) 0 % (0-10); EOSINOPHILS # (AUTO) 0.1 10^3/uL (0.0-0.3); EOSINOPHILS % (AUTO) 2 % (0-10); HEMATOCRIT 37 % (35-52); HEMOGLOBIN 12.3 g/dL (11.5-16.0); LYMPHOCYTES # (AUTO) 0.8 10^3/uL (1.0-4.0); LYMPHOCYTES % (AUTO) 14 % (12-44); MEAN CORPUSCULAR HEMOGLOBIN 28 pg (25-34); MEAN CORPUSCULAR HGB CONC 33 g/dL (32-36); MEAN CORPUSCULAR VOLUME 86 fL (80-99); MEAN PLATELET VOLUME 11.5 fL (9.0-12.2); MONOCYTES # (AUTO) 0.2 10^3/uL (0.0-1.0); MONOCYTES % (AUTO) 4 % (0-12); NEUTROPHILS # (AUTO) 4.9 10^3/uL (1.8-7.8); NEUTROPHILS % (AUTO) 80 % (42-75); PLATELET COUNT 154 10^3/uL (130-400); WHITE BLOOD COUNT 6.1 10^3/uL (4.3-11.0)
[2022-10-20 03:34] LABS: ALBUMIN 3.4 GM/DL (3.2-4.5); BILIRUBIN,TOTAL 0.5 MG/DL (0.1-1.0); CALCIUM 8.3 MG/DL (8.5-10.1); CREATININE SERUM 0.6 MG/DL (0.60-1.30); POTASSIUM 3.9 MMOL/L (3.6-5.0); TOTAL PROTEIN 7.3 GM/DL (6.4-8.2)
[2022-10-20 03:35] LABS: BACTERIA,URINE NEGATIVE /HPF; BILIRUBIN,URINE NEGATIVE (NEGATIVE); CLARITY,URINE CLEAR; COLOR,URINE YELLOW; GLUCOSE, URINE (UA) NEGATIVE (NEGATIVE); NITRITE,URINE NEGATIVE (NEGATIVE); PROTEIN,URINE NEGATIVE (NEGATIVE); WBC,URINE RARE /HPF
[2022-10-20 03:46] LABS: KETONES,URINE 2+ (NEGATIVE); LEUKOCYTE ESTERASE ,URINE NEGATIVE (NEGATIVE); PH,URINE 6.5 (5-9)
== END 2022-10-20 03:25 | disposition home or self-care (01) ==
LOC: EDUNIT# 23:33 → ER 23:39
DX: O21.9 Vomiting of pregnancy, unspecified (principal); O26.892 Other specified pregnancy related conditions, second trimester; R10.84 Generalized abdominal pain; Z3A.00 Weeks of gestation of pregnancy not specified; Z28.310 Unvaccinated for COVID-19
CPT/HCPCS: 36415; 80053; 81000; 85025

== ENCOUNTER 2022-11-11 19:30 | Outpatient (CLI) | payer SELFPAY ==
[~2022-11-11] VITALS: Ht 157.5 cm; Wt 91.5 kg
[~2022-11-11 19:30] MED LIST changes: +PROM25TA14 PO
[2022-11-11 19:57] VITALS: BP 119/73
[2022-11-11 20:00] LABS: BILIRUBIN,URINE NEGATIVE (NEGATIVE); CLARITY,URINE CLEAR; COLOR,URINE YELLOW; GLUCOSE, URINE (UA) NEGATIVE (NEGATIVE); KETONES,URINE NEGATIVE (NEGATIVE); LEUKOCYTE ESTERASE ,URINE NEGATIVE (NEGATIVE); NITRITE,URINE NEGATIVE (NEGATIVE); PROTEIN,URINE NEGATIVE (NEGATIVE)
[2022-11-11 20:08] LABS: BACTERIA,URINE TRACE /HPF; SQUAMOUS EPITHELIAL CELL,UR 0-2 /HPF; WBC,URINE RARE /HPF
--- NOTE | 2022-11-15 09:20 | Physician Query-Final Dx ---
Clinic Account Progress/Dx Physician Query: Please give diagnosis Please include # weeks gestation Date of Service Nov 11, 2022 at 19:30 ANDREW,SepNov 15, 2022 09:20
== END 2022-11-11 20:23 | disposition home or self-care (01) ==
LOC: WSo 19:30 → LDRP 19:30 → WSo 20:23
PROVIDERS: ATTEND Family Medicine
DX: O36.8130 Decreased fetal movements, third trimester, not applicable or unspecified (principal); Z3A.29 29 weeks gestation of pregnancy
CPT/HCPCS: 81000; G0463; 99212

== ENCOUNTER 2022-12-20 13:12 | Outpatient (CLI) | payer MEDICAID ==
[~2022-12-20] VITALS: Ht 157.5 cm; Wt 96.3 kg
[2022-12-20 13:34] VITALS: BP 114/80
[2022-12-20 13:45] LABS: BILIRUBIN,URINE NEGATIVE (NEGATIVE); CLARITY,URINE CLEAR; COLOR,URINE YELLOW; GLUCOSE, URINE (UA) NEGATIVE (NEGATIVE); KETONES,URINE 1+ (NEGATIVE); LEUKOCYTE ESTERASE ,URINE NEGATIVE (NEGATIVE); NITRITE,URINE NEGATIVE (NEGATIVE); PROTEIN,URINE NEGATIVE (NEGATIVE)
[2022-12-20 13:51] LABS: BACTERIA,URINE NEGATIVE /HPF; RBC,URINE 0-2 /HPF; SQUAMOUS EPITHELIAL CELL,UR 0-2 /HPF
--- NOTE | 2022-12-21 09:14 | Physician Query-Final Dx ---
Clinic Account Progress/Dx Physician Query: Please give diagnosis Please include # weeks gestation Date of Service Dec 20, 2022 at 13:12 WHEAT,SepDec 21, 2022 09:14
== END 2022-12-20 14:25 | disposition home or self-care (01) ==
LOC: WSo 13:12 → LDRP 13:13 → WSo 14:25
PROVIDERS: ATTEND Family Medicine
DX: O26.893 Other specified pregnancy related conditions, third trimester (principal); R10.9 Unspecified abdominal pain; Z3A.34 34 weeks gestation of pregnancy
CPT/HCPCS: 81000

== ENCOUNTER 2023-01-18 21:25 | Outpatient (CLI) | payer MEDICAID ==
[~2023-01-18] VITALS: Ht 157.5 cm; Wt 102.0 kg
[2023-01-18 22:31] VITALS: BP 121/67
[2023-01-19 00:22] LABS: BILIRUBIN,URINE NEGATIVE (NEGATIVE); CLARITY,URINE CLEAR; COLOR,URINE YELLOW; GLUCOSE, URINE (UA) NEGATIVE (NEGATIVE); KETONES,URINE NEGATIVE (NEGATIVE); LEUKOCYTE ESTERASE ,URINE TRACE (NEGATIVE); NITRITE,URINE NEGATIVE (NEGATIVE); PROTEIN,URINE NEGATIVE (NEGATIVE)
[2023-01-19 00:29] LABS: BACTERIA,URINE TRACE /HPF; CALCIUM OXALATE CRYSTALS,UR LARGE /LPF; SQUAMOUS EPITHELIAL CELL,UR 0-2 /HPF; WBC,URINE RARE /HPF
[2023-01-19] MEDS ORDERED: LACTATED RINGERS 1,000 ML IV SCH (00:30)
[2023-01-19] MEDS ORDERED: morphine INJ 4 MG/ML 1 ML (VIAL/SYRINGE) IVP ONE (00:30)
[2023-01-19 00:48] VITALS: BP 125/81
[2023-01-19 02:24] VITALS: BP 127/62
--- NOTE | 2023-01-19 07:57 | Physician Query-Final Dx ---
ANDREW,01/19/23 0757: Clinic Account Progress/Dx Physician Query: Please give diagnosis Please include # weeks gestation Date of Service January 18, 2023 at 21:25 MARGARITA BURR DO 01/19/23 0848: Clinic Account Progress/Dx DIAGNOSIS: Diagnosis 38wk GA contractions, not in active labor ANDREW,SepJanuary 19, 2023 07:57 MARGARITA BURR DO January 19, 2023 08:48
== END 2023-01-19 02:24 | disposition home or self-care (01) ==
LOC: WSo 21:25 → LDRP 21:25 → WSo 01-19 02:24
PROVIDERS: ATTEND Family Medicine
DX: O47.1 False labor at or after 37 completed weeks of gestation (principal); Z3A.38 38 weeks gestation of pregnancy
CPT/HCPCS: 81000; 96360; 96375; G0463; 99213

== ENCOUNTER 2023-01-21 05:50 | Inpatient (IN) | payer MEDICAID ==
[~2023-01-21] VITALS: Ht 157.5 cm; Wt 102.2 kg
[2023-01-21] VITALS (41 sets, daily range): BP systolic 80–168; BP diastolic 44–118
[2023-01-21] MEDS ORDERED: CATHETER FLUSH 10 ML SYR IV SCH ×2 (06:00→14:00)
[2023-01-21] MEDS ORDERED: MINERAL OIL 30 ML UDC TOP PRN (06:00)
[2023-01-21] MEDS ORDERED: D5 LR IV SOLUTION 1,000 ML IV SCH (06:00)
[2023-01-21 06:24] LABS: BASOPHILS % (AUTO) 0 % (0-10); EOSINOPHILS # (AUTO) 0.2 10^3/uL (0.0-0.3); EOSINOPHILS % (AUTO) 4 % (0-10); HEMATOCRIT 36 % (35-52); LYMPHOCYTES # (AUTO) 1.6 10^3/uL (1.0-4.0); LYMPHOCYTES % (AUTO) 29 % (12-44); MEAN CORPUSCULAR HEMOGLOBIN 29 pg (25-34); MEAN CORPUSCULAR HGB CONC 33 g/dL (32-36); MEAN CORPUSCULAR VOLUME 86 fL (80-99); MEAN PLATELET VOLUME 12.9 fL (9.0-12.2); MONOCYTES # (AUTO) 0.5 10^3/uL (0.0-1.0); MONOCYTES % (AUTO) 9 % (0-12); NEUTROPHILS # (AUTO) 3.2 10^3/uL (1.8-7.8); NEUTROPHILS % (AUTO) 58 % (42-75); PLATELET COUNT 135 10^3/uL (130-400); WHITE BLOOD COUNT 5.5 10^3/uL (4.3-11.0)
[2023-01-21 06:24] LABS: BILIRUBIN,URINE NEGATIVE (NEGATIVE); CLARITY,URINE CLEAR; COLOR,URINE YELLOW; GLUCOSE, URINE (UA) NEGATIVE (NEGATIVE); KETONES,URINE NEGATIVE (NEGATIVE); LEUKOCYTE ESTERASE ,URINE NEGATIVE (NEGATIVE); NITRITE,URINE NEGATIVE (NEGATIVE); PROTEIN,URINE NEGATIVE (NEGATIVE)
[2023-01-21 06:41] LABS: BACTERIA,URINE NEGATIVE /HPF
[2023-01-21] MEDS ORDERED: OXYTOCIN PRE-MIX DRIP 500 ML IV SCH ×2 (07:15→12:45)
--- NOTE | 2023-01-21 07:19 | History & Physical-OB ---
OB - Chief Complaint & HPI Date/Time Date of Admission: Date of Admission: January 21, 2023 at 05:50 Date seen by a Provider: January 21, 2023 Time Seen by a Provider: 06:30 Chief Complaint/History OB-Reason for Admission/Chief: Induction of Labor Hx : 5 Hx Para: 4 Expected Date of Delivery: January 27, 2023 Gestational Age in Weeks: 39 Gestational Age in Days: 1 Admission Nurse Assessment Rev: Yes History of Labs GBS negative Allergies and Home Medications Allergies Coded Allergies: chlorpheniramine (Verified Allergy, Unknown, Hives, 01/29/22) dextromethorphan (Verified Allergy, Unknown, Hives, 01/29/22) pseudoephedrine (Verified Allergy, Unknown, Hives, 01/29/22) Patient Home Medication List Home Medication List Reviewed: Yes Ows174/FA/Omega3/Dha/Fish Oil ( Gummies) 1 Each Tab.chew, 2 EACH PO DAILY, (Reported) Entered as Reported by: CHIQUI GUPTA on 10/04/21 1849 Discontinued Medications Albuterol Sulfate (Ventolin Hfa) 1 Puff Puff, 2 PUFF INH Q6H, (Reported) Discontinued Reason: No Longer Taking Entered as Reported by: LIYAH HINTON on 01/29/22 1631 OB - History Hx of Present Care: Yes Ultrasounds: Normal mid trimester US Obstetrical Complications: None Medical Complications: None Patient Past Medical History no chronic medical problems Social History/Family History 2nd Hand Smoke Exposure: No Immunizations Influenza Vaccine Up-to-Date: No; Not Current First/Initial COVID19 Vaccine: N/A Second COVID19 Vaccination: NONE Third COVID19 Vaccination Date: NONE Hepatitis A: Yes Hepatitis B: Yes OB - Admission Exam Physical Exam Vitals: Vital Signs 01/21/23 01/21/23 06:03 06:42 Temp 36.4 Pulse 77 Resp 18 B/P (MAP) 122/73 (89) Pulse Ox 98 O2 Delivery Room Air HEENT: Moist Membranes Heart: Rhythm Normal Lungs: Clear Abdomen: Gravid Cervical Dilatation: 2cm Effacement: 75% Station: -3 Membranes: Intact Heart Rate: 140's Accelerations: Accelerations Present Short Term Variability: Present Telephone Advice Nurse Variability: Average (6-25) Contractions on Admission: None [place] Scoring Tool (Modified) Dilation (cm): 1-2cm (1) Effacement (%): 51-79% (2) Descent/Station: -3 (0) Cervix Consistency: Medium(1) Cervix Position: Anterior (2) Labs Laboratory Tests Test 01/21/23 05:55 01/21/23 06:10 Range/Units Urine Color YELLOW Urine Clarity CLEAR Urine pH 6.0 5-9 Urine Specific [place] 1.025 H 1.016-1.022 Urine Protein NEGATIVE NEGATIVE Urine Glucose (UA) NEGATIVE NEGATIVE Urine Ketones NEGATIVE NEGATIVE Urine Nitrite NEGATIVE NEGATIVE Urine Bilirubin NEGATIVE NEGATIVE Urine Urobilinogen 0.2 < = 1.0 MG/DL Urine Leukocyte Esterase NEGATIVE NEGATIVE Urine RBC (Auto) NEGATIVE NEGATIVE Urine RBC NONE /HPF Urine WBC NONE /HPF Urine Squamous Epithelial Cells 2-5 /HPF Urine Crystals NONE /LPF Urine Bacteria NEGATIVE /HPF Urine Casts NONE /LPF Urine Mucus NEGATIVE /LPF Urine Culture Indicated NO White Blood Count 5.5 4.3-11.0 10^3/uL Red Blood Count 4.18 3.80-5.11 10^6/uL Hemoglobin 12.0 11.5-16.0 g/dL Hematocrit 36 35-52 % Mean Corpuscular Volume 86 80-99 fL Mean Corpuscular Hemoglobin 29 25-34 pg Mean Corpuscular Hemoglobin Concent 33 32-36 g/dL Red Cell Distribution Width 15.7 H 10.0-14.5 % Platelet Count 135 130-400 10^3/uL Mean Platelet Volume 12.9 H 9.0-12.2 fL Immature Granulocyte % (Auto) 1 % Neutrophils (%) (Auto) 58 42-75 % Lymphocytes (%) (Auto) 29 12-44 % Monocytes (%) (Auto) 9 0-12 % Eosinophils (%) (Auto) 4 0-10 % Basophils (%) (Auto) 0 0-10 % Neutrophils # (Auto) 3.2 1.8-7.8 10^3/uL Lymphocytes # (Auto) 1.6 1.0-4.0 10^3/uL Monocytes # (Auto) 0.5 0.0-1.0 10^3/uL Eosinophils # (Auto) 0.2 0.0-0.3 10^3/uL Basophils # (Auto) 0.0 0.0-0.1 10^3/uL Immature Granulocyte # (Auto) 0.0 0.0-0.1 10^3/uL OB - Assessment/Plan/Diagnosis Assessment Assessment: induction of labor Admission Dx 1. IUP at term 39 weeks. Admission Status: Inpatient Order (span 2 midnights) Reason for Inpatient Admission: L&D Plan Plan: Induction Induction Method: AROM Other Plan -Pitocin as needed -desires epidural SARAH BENJAMIN MD January 21, 2023 07:19
[2023-01-21] MEDS ORDERED: fentaNYL 2 mcg/ml BUPIVA 0.125 100 ML ONE (07:49)
[2023-01-21] MEDS ORDERED: BUTORPHANOL INJ 2 MG/ML (STADOL) VIAL IV ONE (08:45)
[2023-01-21] MEDS ORDERED: fentaNYL INJ 100 MCG/2 ML AMP ONE (08:57)
--- NOTE | 2023-01-21 10:05 | Anesthesia-General Post-Op ---
MAC Patient Condition Mental Status/LOC: Same as Preop Cardiovascular: Satisfactory Nausea/Vomiting: Absent Respiratory: Satisfactory Pain: Controlled Complications: Absent Post Op Complications Complications None Follow Up Care/Instructions Patient Instructions None needed. Anesthesiology Discharge Order Discharge Order Patient is doing well, no complaints, stable vital signs, no apparent adverse anesthesia problems. No complications reported per nursing. JAYSON ORR CRNA January 21, 2023 10:05
--- NOTE | 2023-01-21 12:34 | OB Labor & Delivery Record ---
L&D History Date of Service Date of Service: January 21, 2023 History Expected Date of Delivery: January 27, 2023 Gestational Age in Weeks: 39 Hx : 5 Hx Para: 4 Complications Events: Routine care Operative Indications (Cesarea: N/A-Vaginal Delivery Intrapartal Events: None L&D Stage1 Stage One Onset of Labor - Date: January 21, 2023 Onset of Labor - Time: 06:30 Monitors and Tracing Monitor Mode: Internal Heart Rate: 145 Monitor Decelerations: None Station: -3 Help Desk Supervisor Variability: Average (6-10) Short Term Variability: Present Presentation: Vertex Vital Signs VS - Last 72 Hours, by Label 01/21/23 01/21/23 01/21/23 01/21/23 06:03 06:42 07:40 07:52 Temp 36.5 36.4 36.5 Pulse 77 77 83 79 Resp 18 18 18 20 B/P (MAP) 122/73 (89) 130/80 (97) 136/78 (97) Pulse Ox 98 98 O2 Delivery Room Air Room Air Room Air Room Air 01/21/23 01/21/23 01/21/23 01/21/23 08:10 08:25 08:40 08:45 Temp 36.5 Pulse 84 84 84 85 Resp 20 20 20 18 B/P (MAP) 118/67 (84) 135/80 (98) 105/58 (74) 104/59 (74) O2 Delivery Room Air Room Air Room Air Room Air 01/21/23 01/21/23 01/21/23 01/21/23 09:02 09:06 09:09 09:12 Pulse 90 85 85 84 Resp 18 18 20 20 B/P (MAP) 143/73 (96) 143/64 (90) 168/77 (107) 138/63 (88) Pulse Ox 98 99 98 99 O2 Delivery Room Air Room Air Room Air Room Air 01/21/23 01/21/23 01/21/23 01/21/23 09:16 09:18 09:20 09:23 Temp 36.7 Pulse 87 85 96 91 Resp 18 18 18 18 B/P (MAP) 119/72 (88) 125/77 (93) 122/76 (91) 125/78 (94) Pulse Ox 98 98 97 97 O2 Delivery Room Air Room Air Room Air Room Air 01/21/23 01/21/23 01/21/23 01/21/23 09:26 09:29 09:38 10:00 Pulse 87 93 85 80 Resp 16 18 18 16 B/P (MAP) 124/74 (91) 125/78 (94) 126/67 (86) 117/73 (88) Pulse Ox 97 96 95 95 O2 Delivery Room Air Room Air Room Air Room Air 01/21/23 01/21/23 01/21/23 01/21/23 10:15 10:30 10:45 11:00 Temp 36.6 Pulse 89 80 85 75 Resp 18 18 18 18 B/P (MAP) 122/72 (89) 126/71 (89) 126/74 (91) 110/68 (82) Pulse Ox 94 94 96 96 O2 Delivery Room Air Room Air Room Air Room Air 01/21/23 11:15 Temp 36.4 Pulse 86 Resp 20 B/P (MAP) 114/62 (79) Pulse Ox 97 O2 Delivery Room Air Signs of Distress by FHT Signs of Distress no Rupture of Membranes Spontaneous Ruture of Membrane: No Amniotic Membrane Rupture Time: 629 Amniotic Membrane Fluid Desc.: Clear Induction/Anesthesia Epidural Cath Placement - Time: 911 L&D Stage2 Stage Two Stage II Date: January 21, 2023 Stage II Time: 12:00 Monitors and Tracing Monitor Mode: Internal Heart Rate: 145 Monitor Accelerations: Uniform Monitor Decelerations: Early Short Term Variability: Present Position: Left Occiput Anterior Presentation: Vertex Signs of Distress by FHT Signs of Distress no Cord Descript/Complications Cord Vessel Description: 3 Vessels Delivery Type Infant Delivery Method: Spontaneous Vaginal Episiotomy/Perineal Laceration Laceraction(s)/Extensions: No Condition of Infant Delivery 1 minute Comment: 7 5 minute Comment: 9 Condition of Condition of : Living Exam: No Observed Abnormalities Resuscitation Resuscitation: N/A - Spontaneous Resp L&D Stage3 Stage Three Stage III Date: January 21, 2023 Stage III Time: 12:04 Pictocin Pitocin Administration mu/min: 12 Pitocin ml/hr: 12 Pitocin Administration Comment: pitocin started at 0725 Placenta Delivery Placenta Delivery: Spontaneous Delivery Summary Summary Estimated blood loss (mL): 100 Condition of Delivery Examined: Cervix Examined Post Hemorrhage: No Intervention Required none SARAH BENJAMIN MD January 21, 2023 12:34
[2023-01-21] MEDS ORDERED: TETANUS,DIPTH,PERTUSS P/F (BOOSTRIX) 0.5 ML VIAL IM ONE (12:45)
[2023-01-21] MEDS ORDERED: NALOXONE 0.4 MG/ML 1 ML (NARCAN) VIAL IV PRN ×2 (12:45→13:15)
[2023-01-21] MEDS ORDERED: WITCH HAZEL(TUCKS) 40 EA JAR TOP PRN (12:45)
[2023-01-21] MEDS ORDERED: BENZOCAINE/MENTHOL (DERMOPLAST) 56 ML CAN TP PRN (12:45)
[2023-01-21] MEDS ORDERED: MEASLES,MUMPS,RUBELLA 1 EA INJ SQ ONE (12:45)
[2023-01-21] MEDS ORDERED: LACTATED RINGERS 1,000 ML IV ONE (13:15)
[2023-01-21] MEDS ORDERED: fentaNYL 2 mcg/ml BUPIVA 0.125 100 ML IV SCH (13:15)
[2023-01-21] MEDS ORDERED: CATHETER FLUSH 10 ML SYR IV PRN (13:15)
[2023-01-21] MEDS: ACETAMINOPHEN 500 MG TAB (TYLENOL) PO SCH ×2 (14:14→20:42)
[2023-01-21] MEDS: IBUPROFEN 600 MG (MOTRIN) TAB PO SCH ×2 (14:14→20:42)
[2023-01-21] MEDS: DOCUSATE SODIUM 100 MG (COLACE) CAP PO SCH (20:42)
[2023-01-22 01:00] VITALS: BP 119/67
[2023-01-22] MEDS: IBUPROFEN 600 MG (MOTRIN) TAB PO SCH ×3 (02:18→14:21)
[2023-01-22] MEDS: ACETAMINOPHEN 500 MG TAB (TYLENOL) PO SCH ×3 (02:18→14:22)
[2023-01-22 05:20] VITALS: BP 121/73
[2023-01-22 07:21] LABS: BASOPHILS % (AUTO) 0 % (0-10)
[2023-01-22 07:22] LABS: EOSINOPHILS # (AUTO) 0.1 10^3/uL (0.0-0.3); EOSINOPHILS % (AUTO) 2 % (0-10); HEMATOCRIT 31 % (35-52); HEMOGLOBIN 10.2 g/dL (11.5-16.0); LYMPHOCYTES # (AUTO) 1.7 10^3/uL (1.0-4.0); LYMPHOCYTES % (AUTO) 26 % (12-44); MEAN CORPUSCULAR HEMOGLOBIN 29 pg (25-34); MEAN CORPUSCULAR HGB CONC 33 g/dL (32-36); MEAN CORPUSCULAR VOLUME 89 fL (80-99); MEAN PLATELET VOLUME 13.6 fL (9.0-12.2); MONOCYTES # (AUTO) 0.5 10^3/uL (0.0-1.0); MONOCYTES % (AUTO) 8 % (0-12); NEUTROPHILS # (AUTO) 4.1 10^3/uL (1.8-7.8); NEUTROPHILS % (AUTO) 64 % (42-75); PLATELET COUNT 119 10^3/uL (130-400); WHITE BLOOD COUNT 6.4 10^3/uL (4.3-11.0)
[2023-01-22 08:11] VITALS: BP 107/56
[2023-01-22] MEDS: DOCUSATE SODIUM 100 MG (COLACE) CAP PO SCH (08:11)
[2023-01-22] MEDS ORDERED: IBUP-844 PO (08:34)
[2023-01-22] MEDS ORDERED: DOCU100C37 PO (08:34)
[2023-01-22] MEDS ORDERED: FERR325T18 PO (08:34)
--- NOTE | 2023-01-22 11:01 | Discharge Summary ---
Discharge Summary Hospital Course Hospital Course Date of Admission: January 21, 2023 at 05:50 Admission Diagnosis : Induction of labor at 39 weeks gestation Family Physician/Provider: Adan Iniguez MD Date of Discharge: 01/22/23 Discharge Diagnosis: s/p spontaneous vaginal delivery Asymptomatic acute blood loss anemia Hospital Course: 27 yo G5 now P5 admitted for IOL at 39 weeks, had uncomplicated labor, delivery and course. Prescribed ferrous sulfate for mild anemia. Labs and Pending Lab Test: Laboratory Tests 01/22/23 05:45: White Blood Count 6.4, Red Blood Count 3.54L, Hemoglobin 10.2L, Hematocrit 31L, Mean Corpuscular Volume 89, Mean Corpuscular Hemoglobin 29, Mean Corpuscular Hemoglobin Concent 33, Red Cell Distribution Width 15.9H, Platelet Count 119L, Mean Platelet Volume 13.6H, Immature Granulocyte % (Auto) 1, Neutrophils (%) (Auto) 64, Lymphocytes (%) (Auto) 26, Monocytes (%) (Auto) 8, Eosinophils (%) (Auto) 2, Basophils (%) (Auto) 0, Neutrophils # (Auto) 4.1, Lymphocytes # (Auto) 1.7, Monocytes # (Auto) 0.5, Eosinophils # (Auto) 0.1, Basophils # (Auto) 0.0, Immature Granulocyte # (Auto) 0.0, Percent Immature Platelet Fraction 13.2H Home Meds Active Ferrous Sulfate 325 Mg (65 Mg Iron) Tablet 325 Mg PO DAILY Docusate Sodium 100 Mg Capsule 100 Mg PO BID Ibu (Ibuprofen) 600 Mg Tablet 600 Mg PO Q6H PRN Reported Gummies (Jai537/FA/Omega3/Dha/Fish Oil) 1 Each Tab.chew 2 Each PO DAILY Assessment/Pt DC Instructions Follow up with Dr. Iniguez in 6 weeks. Discharge Diet: No Restrictions Activity as Tolerated: Yes (avoid strenuous activity x 6 weeks, nothing in the vagina for 6 weeks.) Discharge Physical Examination Allergies: Coded Allergies: chlorpheniramine (Verified Allergy, Unknown, Hives, 01/29/22) dextromethorphan (Verified Allergy, Unknown, Hives, 01/29/22) pseudoephedrine (Verified Allergy, Unknown, Hives, 01/29/22) General Appearance: No Apparent Distress, WD/WN Respiratory: Lungs Clear, Normal Breath Sounds Cardiovascular: Regular Rate, Rhythm, No Murmur Gastrointestinal: Other (fundus firm at umbilicus, nontender) Skin: Normal Color, Warm/Dry Neurologic/Psychiatric: Alert, Normal Mood/Affect COURTNEY QUINTANA MD January 22, 2023 11:01
[2023-01-22 14:22] VITALS: BP 144/61
== END 2023-01-22 15:10 | disposition home or self-care (01) | DRG 806 ==
LOC: LDRP 05:50
PROVIDERS: ADMIT Family Medicine; ATTEND Family Medicine
PROC: 10E0XZZ Delivery of Products of Conception, External Approach (ICD-10-PCS; principal; 2023-01-21)
PROC: 10907ZC Drainage of Amniotic Fluid, Therapeutic from Products of Conception, Via Natural or Artificial Opening (ICD-10-PCS; 2023-01-21)
PROC: 3E033VJ Introduction of Other Hormone into Peripheral Vein, Percutaneous Approach (ICD-10-PCS; 2023-01-21)
DX: O90.81 Anemia of the puerperium (principal); D62 Acute posthemorrhagic anemia; Z37.0 Single live birth; Z3A.39 39 weeks gestation of pregnancy
CPT/HCPCS: 36415; 81000; 85025; 86780; 86850; 86900; 86901